=== PATIENT | male | born 1960 | race Caucasian/White ===

== ENCOUNTER 2021-10-18 11:03 | Emergency (ER) | payer OTHER ==
[~2021-10-18] VITALS: Ht 170.2 cm; Wt 63.5 kg
== END 2021-10-18 14:00 | disposition home or self-care (01) ==
LOC: ER 11:03
DX: S89.81XA Other specified injuries of right lower leg, initial encounter (principal); X58.XXXA Exposure to other specified factors, initial encounter; Y93.89 Activity, other specified; Y92.89 Other specified places as the place of occurrence of the external cause; Z88.0 Allergy status to penicillin